=== PATIENT | female | born 1980 | race Caucasian/White ===

== ENCOUNTER 2016-12-12 14:07 | Emergency (ER) | payer OTHER ==
--- NOTE | 2016-12-12 15:57 | ED ---
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 Left lower quadrant abdominal pain. History of ovarian cyst. No surgery history. No fevers. No nausea vomiting or diarrhea. No medication taken at home for pain this time. Patient states she has history of ovarian cysts, she also is history of colonoscopy in no history of diverticulosis. - Related Data Home Medications Medication Instructions Recorded Confirmed Cetirizine HCl [Zyrtec] 10 mg PO DAILY 04/23/16 04/23/16 Cholecalciferol [Vitamin D3] 5,000 unit PO DAILY 04/23/16 04/23/16 Flaxseed Oil [Louise-3 Flaxseed Oil] 1,000 mg PO DAILY 04/23/16 04/23/16 Previous Rx's Medication Instructions Recorded Ketorolac [Toradol] 10 mg PO Q6HR #20 tab 04/23/16 Allergies Allergy/AdvReac Type Severity Reaction Status Date / Time Milk Containing Products Allergy Cough Verified 12/12/16 14:47 [Dairy] Review of Systems ROS Statement: Those systems with pertinent positive or pertinent negative responses have been documented in the HPI. ROS Other: All systems not noted in ROS Statement are negative. Past Medical History Additional Past Medical History / Comment(s): Polycystic ovarian disease, ovarian cysts History of Any Multi-Drug Resistant Organisms: None Reported Past Surgical History: Uterine Ablation Additional Past Surgical History / Comment(s): D &C, Past Psychological History: No Psychological Hx Reported Smoking Status: Never smoker Past Alcohol Use History: None Reported Past Drug Use History: None Reported General Exam Limitations: no limitations General appearance: alert, in no apparent distress Head exam: Present: atraumatic, normocephalic, normal inspection Eye exam: Present: normal appearance, PERRL, EOMI. Absent: scleral icterus, conjunctival injection, periorbital swelling ENT exam: Present: normal exam, mucous membranes moist Neck exam: Present: normal inspection. Absent: tenderness, meningismus, lymphadenopathy Respiratory exam: Present: normal lung sounds bilaterally. Absent: respiratory distress, wheezes, rales, rhonchi, stridor Cardiovascular Exam: Present: regular rate, normal rhythm, normal heart sounds. Absent: systolic murmur, diastolic murmur, rubs, gallop, clicks GI/Abdominal exam: Present: soft, tenderness (Left lower quadrant), normal bowel sounds. Absent: distended, guarding, rebound, rigid Extremities exam: Present: normal inspection, full ROM, normal capillary refill. Absent: tenderness, pedal edema, joint swelling, calf tenderness Back exam: Present: normal inspection Neurological exam: Present: alert, oriented X3, CN II-XII intact Psychiatric exam: Present: normal affect, normal mood Skin exam: Present: warm, dry, intact, normal color. Absent: rash Course Vital Signs 12/12/16 14:45 Temperature 97.7 F Pulse Rate 68 Respiratory 20 Rate Blood Pressure 122/68 O2 Sat by Pulse 98 Oximetry - Reevaluation(s) Reevaluation #1: 12/12/16 16:38 Patient has good pain control at this time Medical Decision Making - Medical Decision Making 36 female here for evaluation of abdominal pain, possible ovarian urine is negative for infectious patient can be discharged home with pain control - Lab Data Lab Results 12/12/16 12/12/16 Range/Units 16:01 16:01 Urine Color Yellow Urine Appearance Cloudy H (Clear) Urine pH 8.0 (5.0-8.0) Ur Specific [place] 1.019 (1.001-1.035) Urine Protein Trace H (Negative) Urine Glucose (UA) Negative (Negative) Urine Ketones Negative (Negative) Urine Blood Negative (Negative) Urine Nitrite Negative (Negative) Urine Bilirubin Negative (Negative) Urine Urobilinogen <2.0 (<2.0) mg/dL Ur Leukocyte Esterase Negative (Negative) Urine WBC <1 (0-5) /hpf Ur Squamous Epith Cells 1 (0-4) /hpf Amorphous Sediment Rare H (None) /hpf Urine Bacteria Many H (None) /hpf Urine Mucus Occasional H (None) /hpf Urine HCG, Qual Not Detected (Not Detectd) - Radiology Data Radiology results: report reviewed (Ultrasound pelvis is positive for ovarian cyst), image reviewed Disposition Clinical Impression: Abdominal pain, Ovarian cyst Disposition: HOME SELF-CARE Condition: Good Instructions: Abdominal Pain (ED), Ovarian Cyst (ED) Referrals: Tez Hewitt MD [Primary Care Provider] - 1-2 days
[2016-12-12] MEDS ORDERED: ONDANSETRON ODT 4 MG TAB PO STA (16:11)
[2016-12-12] MEDS ORDERED: HYDROmorphone 2 MG/ML 1 ML SYRINGE IM STA (16:11)
[2016-12-12 16:28] LABS: Amorphous Sediment,Urine Rare /hpf; Appearance,Urine Cloudy (Clear); Bacteria,Urine Many /hpf; Bilirubin,Urine Negative (Negative); Glucose,Urine (UA) Negative (Negative); Ketones,Urine Negative (Negative); Leukocyte Esterase,Urine Negative (Negative); Mucus,Urine Occasional /hpf; Nitrite,Urine Negative (Negative); Particle Count 15133; Protein,Urine Trace (Negative); Specific Gravity,Urine 1.019 (1.001-1.035); Squamous Epithelial Cell,Urine 1 /hpf (0-4); UA Billing (MACRO vs. MICRO) MICRO; Urobilinogen,Urine <2.0 mg/dL (<2.0); WBC,Urine <1 /hpf (0-5)
--- NOTE | 2016-12-12 16:53 | US ---
EXAMINATION TYPE: US transvaginal DATE OF EXAM: 12/12/2016 COMPARISON: 04/23/2016 CLINICAL HISTORY: Pain. LLQ pain x 4 days TECHNIQUE: Transvaginal (TV) Date of LMP: 7-8 years ago, pt states previous ablation EXAM MEASUREMENTS: Uterus: 7.5 x 4.4 x 4.4 cm cm Endometrial Stripe: 0.4 cm Right Ovary: 2.6 x 1.4 x 3.0 cm Left Ovary: 2.9 x 1.5 x 2.3 cm 1. Uterus: Anteverted Heterogeneous, echogenic area within fundus, unchanged from previous exams= 1.7 x 1.0 x 1.8 cm 2. Endometrium: wnl 3. Right Ovary: wnl 4. Left Ovary: wnl Spectral, color and waveform doppler imaging shows good arterial and venous flow within the ovaries ; there is no evidence for ovarian torsion. 5. Bilateral Adnexa: wnl 6. Posterior cul-de-sac: wnl Bilateral follicles IMPRESSION: No evidence of ovarian torsion. 17 x 9 mm echogenic area in the uterine fundus consistent with an endometrial polyp or submucosal fibroid appears stable compared to last exam.
[2016-12-12 17:51] VITALS: BP 119/87; PULSE 75; RESP 18; TEMP 97.8
== END 2016-12-12 17:50 | disposition home or self-care (01) ==
LOC: EC 14:07
DX: N83.209 Unspecified ovarian cyst, unspecified side (principal); Z79.899 Other long term (current) drug therapy; Z91.011 Allergy to milk products; Z98.890 Other specified postprocedural states
CPT/HCPCS: 81001; 81025; 87086; 93975; 76830; 99284; 96372; J1170

== ENCOUNTER → 2017-03-17 | Outpatient (CLI) | payer OTHER ==
--- NOTE | 2017-03-17 15:55 | MR ---
EXAMINATION TYPE: MR foot RT wo con DATE OF EXAM: 03/17/2017 COMPARISON: NONE HISTORY: pain in rt foot per order. (M 79.671). Pain swelling with limited movement for 10 months bet ween toes over plantar surface per patient. Standard multiplanar, multisequence MRI departmental protocol Multiplanar, multisequence images of the right foot were acquired. FINDINGS: There is some spurring and joint space loss at mid foot articulations. There is some flexio n in the second through fifth toes identified. There is abnormal subcutaneous edema surrounding distal third metatarsal beginning on coronal image 2 5 at distal diaphyseal level with involvement of the third metatarsal head present. There is some inc reased T2 osseous signal in the third metatarsal head noted seen best on sagittal image 17. There is asymmetric prominent joint effusion along dorsal surface at this level on coronal image 19 some mild edema at base of third proximal phalanx is also felt present. Adjacent flexor and extensor tendons ar e intact and not suspiciously enlarged or have abnormal signal. Plantar fascia is maintained. Normal sinus tarsi fat is seen. There is small superior moderate size i nferior calcaneal spur is incidentally noted. IMPRESSION: Consider inflammatory change centered at third metacarpophalangeal joint with inflammatory spread to involve the bone and adjacent soft tissue of the third metatarsal head and proximal metaphysis of the third proximal phalanx.
== END | disposition home or self-care (01) ==
LOC: RADMRIMAIN 12:47
PROVIDERS: ATTEND Family Medicine
DX: M25.871 Other specified joint disorders, right ankle and foot (principal); M79.671 Pain in right foot

== ENCOUNTER → 2017-04-18 | Outpatient (CLI) | payer OTHER ==
[2017-04-18 17:12] LABS: Uric Acid 3.6 mg/dL (3.7-7.4)
[2017-04-18 17:14] LABS: Rheumatoid Factor, Qnt <9 IU/mL (<12)
[2017-04-19 01:12] LABS: ANA w/Reflex to Titer NEGATIVE (NEGATIVE); Cyclic Citrull Pep IgG Unit <0.5 U/mL; Cyclic Citrullinated Pep IgG NEGATIVE (NEGATIVE)
[2017-04-19 13:37] LABS: Lyme IgG/IgM 0.2 Index; Lyme IgG/IgM Interp NEGATIVE (NEGATIVE)
== END | disposition home or self-care (01) ==
LOC: LABWHC1 15:59
PROVIDERS: ATTEND Orthopaedic Surgery Foot and Ankle Surgery
DX: M20.41 Other hammer toe(s) (acquired), right foot (principal); M65.871 Other synovitis and tenosynovitis, right ankle and foot; M79.671 Pain in right foot
CPT/HCPCS: 36415; 84550; 85652; 86038; 86200; 86431; 86618

== ENCOUNTER → 2017-10-11 | Outpatient (CLI) | payer OTHER ==
[2017-10-12 12:48] LABS: HLA B27 NEGATIVE
== END | disposition home or self-care (01) ==
LOC: LABWHC1 14:53
PROVIDERS: ATTEND Orthopaedic Surgery Foot and Ankle Surgery
DX: M20.41 Other hammer toe(s) (acquired), right foot (principal); M65.871 Other synovitis and tenosynovitis, right ankle and foot; M76.821 Posterior tibial tendinitis, right leg
CPT/HCPCS: 36415; 85652; 86812

== ENCOUNTER → 2018-02-02 | Outpatient (CLI) | payer OTHER ==
--- NOTE | 2018-02-03 07:52 | MM ---
Reason for exam: screening (asymptomatic). History: Family history of breast cancer in cousin at age 40 and breast cancer in grandmother at age 50. Physical Findings: Nurse did not find any significant physical abnormalities on exam. MG 3D Screening Mammo W/Cad Bilateral CC and MLO view(s) were taken. The breast tissue is heterogeneously dense. This may lower the sensitivity of mammography. No suspicious calcifications are seen. Nodular density left 9 o'clock and right upper outer quadrant anterior third position. These results were verbally communicated with the patient and result sheet given to the patient on 02/02/18. ASSESSMENT: Incomplete: need additional imaging evaluation, BI-RAD 0 RECOMMENDATION: Ultrasound of both breasts.
--- NOTE | 2018-02-03 07:55 | USB ---
Reason for exam: additional evaluation requested from abnormal screening. History: Family history of breast cancer in cousin at age 40 and breast cancer in grandmother at age 50. US Breast Workup Limited SALTY Right limited breast ultrasound including focal area of concern, retroareolar and axilla demonstrates a 0.6 x 0.4 x 0.6cm mixed lesion at 9 o'clock for which a biopsy is recommended and a 0.3 x 0.2 x 0.3cm lesion too small to characterize at 10 o'clock. Left limited breast ultrasound including focal area of concern, retroareolar and axilla demonstrates a 1.9 x 2.1 x 1.7cm solid lesion at 8 o'clock for which a biopsy is recommended and a node at the axilla. These results were verbally communicated with the patient and result sheet given to the patient on 02/02/18. ASSESSMENT: Suspicious, BI-RAD 4 RECOMMENDATION: Ultrasound core biopsy of both breasts. Called Dr. Hewitt with mammographic findings, office will call the patient and let her know how to proceed. PRELIMINARY REPORT CALLED AND FAXED TO DR. HEWITT ON 02/02/18.
== END | disposition home or self-care (01) ==
LOC: RADMAMWWP 13:59
PROVIDERS: ATTEND Family Medicine
DX: Z12.31 Encounter for screening mammogram for malignant neoplasm of breast (principal); R92.8 Other abnormal and inconclusive findings on diagnostic imaging of breast
CPT/HCPCS: 77063; 77067

== ENCOUNTER → 2018-02-16 | Day surgery (SDC) | payer OTHER ==
[2018-02-16 13:22] VITALS: RESP 16; TEMP 97.8; BMI 27.3
--- NOTE | 2018-02-16 14:53 | USB ---
EXAMINATION TYPE: US biopsy breast VAD RT, US biopsy breast VAD LT, MG diagnostic mammo BI wo CAD DATE OF EXAM: 02/16/2018 CLINICAL HISTORY: N64.9 Lesion of the breast bilateral. Prior abnormal ultrasound and mammogram. TECHNIQUE: Ultrasound guided core biopsy of bilateral breast with clip placement and follow-up two-view mammogram. COMPARISON: Bilateral breast ultrasound and mammogram February 02, 2018. FINDINGS: The procedure of ultrasound guided core biopsy was explained to the patient. Benefits, alternatives, and risks were discussed. An informed consent was then obtained. The patient was placed in supine positioning for imaging and for the procedure. Preprocedure imaging redemonstrates small 6 mm oval well- circumscribed slightly hypoechoic lesion 9:00 position zone a in the right breast and a larger deeper 1.7 cm lobulated hypoechoic lesion 8:00 position zone C in the left breast. The overlying skin was prepped and draped in usual sterile fashion. Lidocaine buffered with bicarbonate was used as anesthetic into the skin and subcutaneous tissue up to area of concern in the breast. Lidocaine with epinephrine is used as anesthetic into the deeper tissue. Under ultrasound guidance, a 12-gauge vacuum assisted biopsy gun device was used to obtain 2 core samples on the left and 3 core samples on the right. Following this, a biopsy clip was placed in both lesions. The patient tolerated the procedure well without any immediate complication. The patient was kept in the radiology department for short stay after the procedure and then discharged home in stable condition. Postprocedure mammogram shows successful placement of clips bilaterally at level of bilateral visualized nodules or masses, smaller right-sided lesion is less well-seen after the procedure. IMPRESSION: Successful, uncomplicated ultrasound guided core biopsies of bilateral of areas of concern in the bilateral breasts, full pathology results to follow. Low to intermediate index of suspicion noted at time of procedure. Favor benign fibroadenomas bilaterally. Pathology Results: Benign A. BREAST, LEFT, ULTRASOUND GUIDED CORE BIOPSY: Fibroadenoma. B. BREAST, RIGHT, ULTRASOUND GUIDED CORE BIOPSY: Fibroadenoma. Background fibrocystic changes including small cysts and apocrine metaplasia. Recommendation Follow up ultrasound of both breasts in 6 months. MTDD
[2018-02-16 16:19] VITALS: BP 118/78; PULSE 73
== END ==
LOC: RADUSWWP 12:43
PROVIDERS: ATTEND Family Medicine
DX: D24.2 Benign neoplasm of left breast (principal); D24.1 Benign neoplasm of right breast; N60.81 Other benign mammary dysplasias of right breast; N60.11 Diffuse cystic mastopathy of right breast
CPT/HCPCS: 88305; 77066; 19083; 19084; A4648; J2001

== ENCOUNTER → 2018-11-21 | Outpatient (CLI) | payer OTHER ==
--- NOTE | 2018-11-22 09:07 | USB ---
Reason for exam: follow-up at short interval from prior study. History: Family history of breast cancer in cousin at age 40 and breast cancer in grandmother at age 50. Benign US biopsy breast VAD LT of the left breast, February 16, 2018. Benign US biopsy breast add'l VAD RT of the right breast, February 16, 2018. Physical Findings: Nurse did not find any significant physical abnormalities on exam. US Breast BILAT Right complete breast ultrasound includes all four quadrants, the retroareolar region and axilla. Finding demonstrates a 0.8 x 0.3 x 0.4cm oval, mixed lesion, likely cystic cluster at 7 o'clock, a 0.3 x 0.3 x 0.5cm oval, probably cystic lesion at 8 o'clock however no clear increase through transmission, 6 month follow up recommended and a 0.6 x 0.3 x 0.5cm oval, hypoechoic lesion at 9 o'clock, biopsy proven fibroadenoma. Left complete breast ultrasound includes all four quadrants, the retroareolar region and axilla. Finding demonstrates a 1.8 x 1.5 x 1.8cm hypoechoic, vascular lesion at 9 o'clock, biopsy proven fibroadenoma. These results were verbally communicated with the patient and result sheet given to the patient on 11/21/18. ASSESSMENT: Probably benign, BI-RAD 3 RECOMMENDATION: Ultrasound of the right breast in 6 months. (attention 8 o'clock)
== END | disposition home or self-care (01) ==
LOC: RADUSWWP 13:58
PROVIDERS: ATTEND Obstetrics & Gynecology
DX: R92.8 Other abnormal and inconclusive findings on diagnostic imaging of breast (principal)

== ENCOUNTER → 2019-06-27 | Outpatient (CLI) | payer OTHER ==
--- NOTE | 2019-06-27 11:38 | USB ---
Reason for exam: follow-up at short interval from prior study. History: Family history of breast cancer in cousin at age 40 and breast cancer in grandmother at age 50. Benign US biopsy breast VAD LT of the left breast, February 16, 2018. Benign US biopsy breast add'l VAD RT of the right breast, February 16, 2018. Physical Findings: Nurse did not find any significant physical abnormalities on exam. US Breast Limited RT Right limited breast ultrasound including focal area of concern, retroareolar and axilla demonstrates a 0.7 x 0.4 x 0.5cm oval, cystic lesion at 7 o'clock with septation, stable, a 0.7 x 0.4 x 0.6cm round, cystic lesion at 8 o'clock and a 0.5 x 0.3 x 0.6cm oval, isoechoic lesion at 9 o'clock, stable in size and appearance. No significant new cystic or solid lesion greater than 0.50cm. These results were verbally communicated with the patient and result sheet given to the patient on 06/27/19. ASSESSMENT: Benign, BI-RAD 2 RECOMMENDATION: Routine screening mammogram of both breasts at age 40.
== END | disposition home or self-care (01) ==
LOC: RADUSWWP 06:44
PROVIDERS: ATTEND Obstetrics & Gynecology
DX: R92.8 Other abnormal and inconclusive findings on diagnostic imaging of breast (principal)

== ENCOUNTER → 2020-02-19 | Outpatient (CLI) | payer OTHER ==
--- NOTE | 2020-02-20 08:46 | US ---
EXAMINATION TYPE: US pelvic complete plus Dopplers DATE OF EXAM: 02/19/2020 COMPARISON: None CLINICAL HISTORY: 4-year-old female R10.2 pelvic pain; especially left pelvic pain x 1 month, endomet rial ablation 9 years ago; TECHNIQUE: Transabdominal scanning of the pelvis. Transvaginal sonographic images were medically nec essary to better assess the following anatomy: ovaries as bladder was not full. Color Doppler and spe ctral waveform analysis of the ovarian arteries and veins. Date of LMP: 9 years ago FINDINGS: EXAM MEASUREMENTS: Uterus: 6.3 x 5.4 x 4.8 cm Endometrial Stripe: small amount of fluid seen in EREN Right Ovary: 3.6 x 2.3x 1.8 cm Left Ovary: 2.6 x 2.0 x 1.2 cm 1. Uterus: Retroverted: hypoechoic rounded area at the mid uterine fundus appears intramural measuri ng 1.0 x 1.0 x 0.8cm; couple of hyperechoic thick walled cysts seen in mid upper myometrium measuring 6 and 5 mm. 2. Endometrium: Small amount of fluid seen in lower midline area of endometrium with history of endo metrial ablation 3. Right Ovary: multifollicular with largest having appearance of involuting cyst = 1.8 x 1.0 x 1.1 cm with peripheral ring of color flow. 4. Left Ovary: multifollicular with simple cyst = 1.1 x 1.0 x 0.9cm. Hyperechoic focus noted adjacen t to cyst = 0.1 x 0.1 x 0.1cm. Spectral, color and waveform Doppler imaging shows good arterial and venous flow within the ovaries ; there is no evidence for ovarian torsion. 5. Bilateral Adnexa: wnl 6. Posterior cul-de-sac: small amount of free fluid seen here = 0.9 x 0.5 x 1.0cm IMPRESSION: 1. Endometrial stripe difficult to delineate compatible with history of prior endometrial ablation. H owever, there is a small amount of fluid seen along the lower uterine segment. There are also a coupl e small cystic areas along the mid to upper endometrium measuring up to 6 mm. Areas of focal hematome tra are not excluded. 2. A suspected hemorrhagic corpus luteum or hemorrhagic cyst measuring 1.8 cm the right ovary. 3. No sonographic evidence for ovarian torsion. 4. Small amount of pelvic free fluid likely physiologic.
== END | disposition home or self-care (01) ==
LOC: RADUSWWP 15:22
PROVIDERS: ATTEND Family Medicine
DX: N85.8 Other specified noninflammatory disorders of uterus (principal)
CPT/HCPCS: 76830

== ENCOUNTER → 2020-03-24 | Outpatient (CLI) | payer OTHER ==
--- NOTE | 2020-03-26 10:54 | MM ---
Reason for exam: screening (asymptomatic). Last mammogram was performed 2 years and 1 month ago. History: Family history of breast cancer in cousin at age 40 and breast cancer in grandmother at age 50. Benign US biopsy breast VAD LT of the left breast, February 16, 2018. Benign US biopsy breast add'l VAD RT of the right breast, February 16, 2018. Physical Findings: A clinical breast exam by your physician is recommended on an annual basis and results should be correlated with mammographic findings. MG 3D Screening Mammo W/Cad Bilateral CC, MLO, and XCCL view(s) were taken. Prior study comparison: February 16, 2018, bilateral MG diagnostic oli BI wo CAD. February 02, 2018, bilateral MG 3d screening mammo w/cad. The breast tissue is heterogeneously dense. This may lower the sensitivity of mammography. Previous mammotome biopsy in the right and left breast. There is chronic nodularity bilaterally. New central right breast nodularity. New left upper outer quadrant nodularity. ASSESSMENT: Incomplete: need additional imaging evaluation, BI-RAD 0 RECOMMENDATION: Special view mammogram and ultrasound of both breasts. (3D) [facility] will attempt to contact patient to return for supplemental views and ultrasound.
== END | disposition home or self-care (01) ==
LOC: RADMAMWWP 09:04
PROVIDERS: ATTEND Obstetrics & Gynecology
DX: Z12.31 Encounter for screening mammogram for malignant neoplasm of breast (principal)
CPT/HCPCS: 77063; 77067

== ENCOUNTER → 2020-04-17 | Outpatient (CLI) | payer OTHER ==
--- NOTE | 2020-04-21 10:05 | MM ---
Reason for exam: additional evaluation requested from abnormal screening. Last mammogram was performed 1 month ago. History: Family history of breast cancer in cousin at age 40 and breast cancer in grandmother at age 50. Benign US biopsy breast VAD LT of the left breast, February 16, 2018. Benign US biopsy breast add'l VAD RT of the right breast, February 16, 2018. Physical Findings: Nurse did not find any significant physical abnormalities on exam. MG 3D Work Up W/Cad SALTY Bilateral LM view(s) were taken. Prior study comparison: March 24, 2020, bilateral MG 3d screening mammo w/cad. February 16, 2018, bilateral MG diagnostic oli BI wo CAD. The breast tissue is heterogeneously dense. This may lower the sensitivity of mammography. Focal asymmetry left 9 o'clock, right anterior 9 o'clock. No significant new findings when compared with previous films. These results were verbally communicated with the patient and result sheet given to the patient on 04/17/20. ASSESSMENT: Benign, BI-RAD 2 RECOMMENDATION: Ultrasound of the left breast in 6 months.
--- NOTE | 2020-04-21 10:08 | USB ---
Reason for exam: additional evaluation requested from abnormal screening. History: Family history of breast cancer in cousin at age 40 and breast cancer in grandmother at age 50. Benign US biopsy breast VAD LT of the left breast, February 16, 2018. Benign US biopsy breast add'l VAD RT of the right breast, February 16, 2018. US Breast Workup Limited SALTY Right limited breast ultrasound including focal area of concern, retroareolar and axilla demonstrates a 0.5 x 0.6 x 0.4cm oval, cystic lesion at 7 o'clock, a 0.3 x 0.4 x 0.3cm oval, cystic lesion at 7 o'clock, a 0.4 x 0.4 x 0.2cm oval, cystic lesion at 8 o'clock and a 0.4 x 0.6 x 0.3cm oval lesion at 9 o'clock, prior biopsy. Left limited breast ultrasound including focal area of concern, retroareolar and axilla demonstrates a 1.6 x 2.2 x 1.7cm oval, lobular, solid lesion at 9 o'clock, prior biopsy, a 1.3 x 1.2 x 0.7cm oval, hypoechoic lesion at 9 o'clock and a 1.4 x 1.5 x 1.3cm node at axilla, larger. These results were verbally communicated with the patient and result sheet given to the patient on 04/17/20. ASSESSMENT: Probably benign, BI-RAD 3 RECOMMENDATION: Ultrasound of the left breast in 6 months.
== END | disposition home or self-care (01) ==
LOC: RADMAMWWP 13:29
PROVIDERS: ATTEND Obstetrics & Gynecology
DX: R92.8 Other abnormal and inconclusive findings on diagnostic imaging of breast (principal)
CPT/HCPCS: 77062; 77066

== ENCOUNTER → 2020-10-06 | Outpatient (CLI) | payer BC ==
--- NOTE | 2020-10-06 10:36 | USB ---
Reason for exam: follow-up at short interval from prior study. History: Family history of breast cancer in cousin at age 40 and breast cancer in grandmother at age 50. Benign US biopsy breast VAD LT of the left breast, February 16, 2018. Benign US biopsy breast add'l VAD RT of the right breast, February 16, 2018. Physical Findings: Nurse did not find any significant physical abnormalities on exam. US Breast Limited LT Technologist: Krystyna Dueñas Left limited breast ultrasound including focal area of concern, retroareolar and axilla demonstrates a 1.7 x 1.9 x 1.3cm hypoechoic lesion at 9 o'clock previously biopsied, a 0.5 x 0.8 x 0.2cm cystic cluster at 2 o'clock and a 1.2 x 0.7 x 0.4cm cystic lesion at 3 o'clock. One of these may correspond to the mammographic finding of 03/24/20. Scanned 8-10 o'clock and 1-4 o'clock. These results were verbally communicated with the patient and result sheet given to the patient on 10/06/20. ASSESSMENT: Probably benign, BI-RAD 3 RECOMMENDATION: Follow-up diagnostic mammogram of both breasts in 6 months.
== END | disposition home or self-care (01) ==
LOC: RADUSWWP 09:34
PROVIDERS: ATTEND Obstetrics & Gynecology
DX: R92.8 Other abnormal and inconclusive findings on diagnostic imaging of breast (principal)

== ENCOUNTER → 2021-05-07 | Outpatient (CLI) | payer BC ==
--- NOTE | 2021-05-08 09:46 | MM ---
Reason for exam: additional evaluation requested from prior study. Last mammogram was performed 1 year and 1 month ago. History: Family history of breast cancer in cousin at age 40 and breast cancer in grandmother at age 50. Benign US biopsy breast VAD LT of the left breast, February 16, 2018. Benign US biopsy breast add'l VAD RT of the right breast, February 16, 2018. Physical Findings: Nurse did not find any significant physical abnormalities on exam. MG 3D Diag Mammo W/Cad SALTY Bilateral CC and MLO view(s) were taken. Prior study comparison: April 17, 2020, bilateral MG 3d work up w/cad SALTY. March 24, 2020, bilateral MG 3d screening mammo w/cad. There are scattered fibroglandular densities. No suspicious calcifications are seen. Previous mammotome biopsy in the right and left breast. Stable lobulated mass left 9 o'clock (previous biopsy). No significant new findings when compared with previous films. These results were verbally communicated with the patient and result sheet given to the patient on 05/07/21. ASSESSMENT: Benign, BI-RAD 2 RECOMMENDATION: Routine screening mammogram of both breasts in 1 year.
== END | disposition home or self-care (01) ==
LOC: RADMAMWWP 14:39
PROVIDERS: ATTEND Obstetrics & Gynecology
DX: R92.2 Inconclusive mammogram (principal); Z78.0 Asymptomatic menopausal state
CPT/HCPCS: 77062; 77066

== ENCOUNTER → 2021-07-07 | Outpatient (CLI) | payer BC ==
--- NOTE | 2021-07-08 03:55 | MR ---
EXAMINATION TYPE: MR foot RT wo con DATE OF EXAM: 07/07/2021 COMPARISON: 03/17/2017 HISTORY: Pain right foot, Posterior tibial tendon tear Multiplanar multiecho imaging of the right foot without contrast. There is a mild ankle joint effusion. There is minimal subtalar fluid. There is no evidence of a frac ture. There is increased signal in the proximal second metatarsal adjacent to the tarsometatarsal roxanne nt and consistent with edema. No fracture line seen. There is mild subcutaneous edema of the forefoot . Achilles tendon is intact. Plantar fascia is intact. The medial and lateral flexor tendons appear i ntact. The posterior tibial tendon shows no retraction. The collateral ligaments of the ankle appear intact. IMPRESSION: There is some edema in the proximal second metatarsal suggestive of a bone bruise. No definite fractu re seen. Mild subcutaneous edema. There is clearing of the fluid and edema around the third MP joint compared to the old exam.
== END | disposition home or self-care (01) ==
LOC: RADMRIMAIN 15:24
PROVIDERS: ATTEND Orthopaedic Surgery Foot and Ankle Surgery
DX: R60.0 Localized edema (principal)

== ENCOUNTER → 2022-05-24 | Outpatient (CLI) | payer BC ==
--- NOTE | 2022-05-25 09:04 | MM ---
Reason for Exam: Screening (asymptomatic). Last mammogram was performed 1 year(s) and 1 month(s) ago. Patient History: Menarche at age 11. First Full-Term at age 21. 02/16/2018, Benign Core Biopsy on the right side. 02/16/2018, Benign Core Biopsy on the left side. Maternal grandmother had breast cancer, age 50. Maternal cousin had breast cancer, age 40. Risk Values: Arely 5 year model risk: 1.7%. NCI Lifetime model risk: 15.3%. Prior Study Comparison: 03/24/2020 Bilateral Screening Mammogram, [facility]. 04/17/2020 Bilateral Diagnostic Mammogram, [facility]. 05/07/2021 Bilateral Diagnostic Mammogram, [facility]. Tissue Density: There are scattered fibroglandular densities. Findings: Analyzed By CAD. There is no suspicious group of microcalcifications or new suspicious mass in either breast. Previous mammotome biopsy in the right and left breast. Stable lobulated mass left breast at 9:00. Chronic nodularity in the right breast. No significant change from prior exams. Overall Assessment: Benign, BI-RAD 2 Management: Screening Mammogram of both breasts in 1 year. A clinical breast exam by your physician is recommended on an annual basis and results should be correlated with mammographic findings. Electronically signed and approved by: Nawaf Nguyen D.O.
== END | disposition home or self-care (01) ==
LOC: RADMAMWWP 13:43
PROVIDERS: ATTEND Obstetrics & Gynecology
DX: Z12.31 Encounter for screening mammogram for malignant neoplasm of breast (principal); Z80.3 Family history of malignant neoplasm of breast
CPT/HCPCS: 77063; 77067

== ENCOUNTER 2023-05-13 11:25 | Day surgery (SDC) | payer BC ==
[2023-05-12 12:16] VITALS: BMI 28.8
[~2023-05-13 11:25] MED LIST: LACTATED RINGERS 1,000 ML IV SCH
[2023-05-13 12:48] LABS: Glucose,Whole Blood 83 mg/dL (70-110)
[2023-05-13 13:00] VITALS: TEMP 96
[2023-05-13] MEDS ORDERED: PROPOFOL 10 MG/ML 20 ML VIAL IV ONE (13:00)
[2023-05-13] MEDS ORDERED: LIDOCAINE 1% INJ 10MG/ML (20 ML MDV) ONE (13:00)
--- NOTE | 2023-05-13 13:12 | P.PCN ---
Date of Procedure: 05/13/23 Procedure(s) Performed: BRIEF HISTORY: Patient is a 43-year-old pleasant female scheduled for an elective colonoscopy as a part of screening for colon cancer and family history of colon cancer. Her brother was diagnosed with colon cancer at age 41. PROCEDURE PERFORMED: Colonoscopy with biopsy. PREOPERATIVE DIAGNOSIS: Screening for colon cancer and family history of colon cancer. IV sedation per Anesthesia. PROCEDURE: After informed consent was obtained, the patient, was brought into the endoscopy unit. IV sedation was administered by Anesthesia under continuous monitoring. Digital rectal examination was normal. Initially the Olympus CF-160 flexible video colonoscope was then inserted in the rectum, gradually advanced into the cecum without any difficulty. Careful examination was performed as the scope was gradually being withdrawn. Ileocecal valve and the appendiceal orifice were visualized and appeared normal. Prep was excellent. Mucosa of the cecum, ascending colon, transverse colon, descending colon, we normal. There was mild mucosal erythema without friability and superficial erosions involving the distal sigmoid colon extending from 25-30 cm from the anal verge and biopsies were done from this area. Rest of sigmoid colon, and rectum appeared normal. Retroflexion was performed in the rectum and no lesions were seen. The patient tolerated the procedure well. IMPRESSION: Mild sigmoid colitis with mucosal erythema and superficial erosions, friability extending from 25-30 cm from the anal verge suspicious for mild ischemic colitis status post multiple biopsies No evidence of colorectal neoplasia RECOMMENDATIONS: Findings of this examination were discussed with the patient as well as a family. All of with the biopsy results. She was advised to have a repeat screening colonoscopy in 3 years..
[2023-05-13 14:08] VITALS: BP 134/76; PULSE 67; RESP 18
== END 2023-05-13 13:52 | disposition home or self-care (01) ==
LOC: ORWHC2ENDO 11:25
PROVIDERS: ATTEND Internal Medicine Gastroenterology
DX: Z12.11 Encounter for screening for malignant neoplasm of colon (principal); K52.89 Other specified noninfective gastroenteritis and colitis; E28.2 Polycystic ovarian syndrome; Z79.899 Other long term (current) drug therapy; Z98.890 Other specified postprocedural states; Z80.0 Family history of malignant neoplasm of digestive organs; Z91.012 Allergy to eggs
CPT/HCPCS: 81025; 45380; J2001; J2704; 88305

== ENCOUNTER → 2023-05-30 | Outpatient (CLI) | payer BC ==
--- NOTE | 2023-05-31 19:09 | MM ---
Reason for Exam: Screening (asymptomatic). Last screening mammogram was performed 12 month(s) ago. Patient History: Menarche at age 11. First Full-Term at age 21. 02/16/2018, Benign Core Biopsy on the right side. 02/16/2018, Benign Core Biopsy on the left side. Maternal grandmother had breast cancer, age 50. Maternal cousin had breast cancer, age 40. Risk Values: Arely 5 year model risk: 1.9%. NCI Lifetime model risk: 15.1%. Prior Study Comparison: 04/17/2020 Bilateral Diagnostic Mammogram, [facility]. 05/07/2021 Bilateral Diagnostic Mammogram, [facility]. 05/24/2022 Bilateral MG 3D screening mammo w/cad, [facility]. Tissue Density: There are scattered fibroglandular densities. Findings: Analyzed By CAD. Medially located mass in the left breast with microclip related to prior biopsy. Findings are unchanged. Additional microclip lateral right breast remains unchanged. There is no suspicious group of microcalcifications or new suspicious mass in either breast. Overall Assessment: Benign, BI-RAD 2 Management: Screening Mammogram of both breasts in 1 year. . Patient should continue monthly self-breast exams. A clinical breast exam by your physician is recommended on an annual basis. This exam should not preclude additional follow-up of suspicious palpable abnormalities. Note on Arely scores and lifetime risk: 1. A Arely score greater than 3% is considered moderate risk. If this is the case, consider specialist referral to assess eligibility for a risk reducing agent. 2. If overall lifetime risk for the development of breast cancer is 20% or higher, the patient may qualify for future screening with alternating mammogram and breast MRI. Electronically signed and approved by: Bisi Johnston M.D. Radiologist
== END | disposition home or self-care (01) ==
LOC: RADMAMWWP 12:11
PROVIDERS: ATTEND Obstetrics & Gynecology
DX: Z12.31 Encounter for screening mammogram for malignant neoplasm of breast (principal); Z80.3 Family history of malignant neoplasm of breast
CPT/HCPCS: 77063; 77067

== ENCOUNTER → 2024-03-30 | Outpatient (CLI) | payer BC ==
--- NOTE | 2024-03-30 21:58 | MR ---
EXAMINATION TYPE: MR knee LT wo con DATE OF EXAM: 03/30/2024 COMPARISON: Outside left knee x-rays March 21, 2024 HISTORY: left knee pain TECHNIQUE: Multiplanar, multisequence images of the knee is performed without IV contrast. FINDINGS: MEDIAL MENISCUS: Medial extrusion medial meniscus on coronal images. Irregular horizontal and vertica l oriented signal in the posterior horn extends to articular surface. Posterior horn is truncated LATERAL MENISCUS: Anterior and posterior horns are intact without tear. CRUCIATE LIGAMENTS: The anterior and posterior cruciate ligaments are intact and unremarkable. COLLATERAL LIGAMENTS: The medial collateral ligament and lateral collateral ligament complex are inta ct lateral collateral ligament proper shows thickening and increased signal at proximal attachment. EXTENSOR MECHANISM: Visualized quadriceps and patellar tendons are intact. EFFUSION: Moderate size suprapatellar joint effusion extends laterally. POPLITEAL CYST: No popliteal/polk cyst. TRICOMPARTMENT SPACES: Fairly severe patellofemoral joint narrowing and spurring quite prominent for patient's age. Additional moderate narrowing and spurring medial and lateral tibiofemoral compartment s. CARTILAGE: Significant chondromalacia patella with full-thickness cartilaginous loss in the posterior patellar pole. Significant cartilaginous loss medial tibiofemoral compartment. BONE MARROW SIGNAL: Heterogeneous increased T2 signal in the posterior patellar pole in the anterior aspect of the distal lateral femoral condyle. Additional area of heterogeneous increased T2 signal in volving posterior aspect of the distal lateral femoral condyle. OTHER: No additional significant abnormality is appreciated. IMPRESSION: 1. Tricompartment degenerative changes quite prominent for patient's age with severe patellofemoral c ompartment findings noted as detailed above. 2. Moderate sized joint effusion extends laterally. 3. Full-thickness tear posterior horn medial meniscus. [facility], , 03/30/2024 9:55 PM
== END | disposition home or self-care (01) ==
LOC: RADMRIMAIN 19:20
PROVIDERS: ATTEND Orthopaedic Surgery
DX: M25.562 Pain in left knee

== ENCOUNTER → 2024-05-08 | Outpatient (CLI) | payer BC ==
[2024-05-08 18:48] LABS: Basophils # (A) 0.03 X 10*3/uL (0.00-0.10); Basophils % (A) 0.4 %; Eosinophils # (A) 0.16 X 10*3/uL (0.04-0.35); Eosinophils % (A) 2.2 %; HCT 40.5 % (37.2-46.3); HGB 13.5 g/dL (12.0-15.0); Lymphocytes # (A) 2.65 X 10*3/uL (0.90-5.00); Lymphocytes % (A) 37.2 %; MCH 31.6 pg (27.0-32.0); MCHC 33.3 g/dL (32.0-37.0); MCV 94.8 FL (80.0-97.0); Mean Platelet Volume 10.2 FL (9.5-12.2); Monocytes # (A) 0.51 X 10*3/uL (0.20-1.00); Monocytes % (A) 7.2 %; NRBC Per 100 WBC 0 X 10*3/uL (0.00-0.01); Neutrophils # (A) 3.77 X 10*3/uL (1.80-7.70); Neutrophils % (A) 52.9 %; Platelet Count 302 X 10*3/uL (140-440); RBC 4.27 X 10*6/uL (4.10-5.20); RDW 12.2 % (11.5-14.5); WBC 7.13 X 10*3/uL (4.50-10.00)
[2024-05-08 20:07] LABS: Potassium 4.2 mmol/L (3.5-5.5)
== END | disposition home or self-care (01) ==
LOC: LABPAT 15:12
PROVIDERS: ATTEND Orthopaedic Surgery
CPT/HCPCS: 80051; 85025

== ENCOUNTER 2024-05-23 10:05 | Day surgery (SDC) | payer BC ==
--- NOTE | 2024-05-23 00:26 | HP ---
HISTORY AND PHYSICAL DATE OF SURGERY: 05/23/2024. HISTORY OF PRESENT ILLNESS: Rajni Spann is a 44-year-old patient, seen with progressive left knee pain. We discussed options regarding treatment. She elected to proceed with left knee arthroscopy. Consent was obtained. PAST MEDICAL HISTORY: Noncontributory. SURGICAL HISTORY: Endometrial ablation. DAILY MEDICATIONS: 1. Naprosyn. 2. Vitamins. ALLERGIES: None. SOCIAL HISTORY: She denies tobacco use. PHYSICAL EVALUATION OF THE LEFT KNEE: Range of motion is 0 to 130 degrees. Moderate effusion. Tenderness along the medial and lateral joint lines. Positive medial Carol's. Positive lateral Carol's. Ligaments stable. Hip rotation without pain. Distal neurovascular exam intact. IMAGING DATA: Left knee radiographs revealed osteoarthritic changes. MRI left knee revealed complex medial meniscal tear and osteoarthritic changes. IMPRESSION: 1. Internal derangement of left knee with medial meniscal tear. 2. Left knee patellofemoral compartment osteoarthritis. PLAN: Left knee arthroscopy with partial medial meniscectomy and debridement. MMODL / IJN: [id number] /
[2024-05-23] MEDS: IV FLUID CONTINUATION 1,000 ML IV ONE (10:32)
[2024-05-23] MEDS: DEXAMETHASONE SOD PHOSPHATE 4 MG/ML 1 ML VIAL IV ONE (10:37)
[2024-05-23] MEDS: LACTATED RINGERS 1,000 ML IV SCH (10:37)
[2024-05-23] MEDS: ONDANSETRON 4 MG/2 ML VIAL IVP ONE (10:37)
[2024-05-23] MEDS: BUPIVACAINE (PF) 0.25% 30 ML VIAL MISCELLANE ONE ×2 (11:49→12:27)
[2024-05-23] MEDS ORDERED: LIDOCAINE 1% INJ 10MG/ML (20 ML MDV) ONE (11:53)
[2024-05-23] MEDS ORDERED: MIDAZOLAM 2 MG/2 ML VIAL ONE (11:53)
[2024-05-23] MEDS ORDERED: fentaNYL (PF) 50 MCG/ML 2 ML AMP ONE (11:53)
[2024-05-23] MEDS ORDERED: PROPOFOL 10 MG/ML 20 ML VIAL IV ONE (11:53)
--- NOTE | 2024-05-23 12:41 | P.OP ---
Date of Procedure: 05/23/24 Preoperative Diagnosis: Internal derangement left knee Postoperative Diagnosis: 1. Tear medial and lateral meniscus left knee 2. Grade IV chondromalacia medial femoral condyle left knee 3. Reactive synovitis medial, lateral and superior compartments left knee 4. 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 Arthroscopic partial medial and lateral meniscectomy left knee 2. Arthroscopic microfracture medial femoral condyle left knee 3. Arthroscopic partial synovectomy medial, lateral and suprapatellar compartments left knee Anesthesia: DEVINA, local Surgeon: Kyler Crockett Estimated Blood Loss (ml): 7 Pathology: none sent Condition: stable Disposition: PACU Indications for Procedure: 44-year-old patient seen with progressive left knee pain. After having treatment options discussed, she elected to proceed with arthroscopy. Operative Findings: See description of procedure Description of Procedure: Patient was taken to the operative suite. Patient underwent a general anesthetic by the department of anesthesia. Patient was given preoperative antibiotics. The left lower extremity was placed in a well-padded arthroscopic leg chery. The left leg was prepped and draped in the normal sterile orthopedic fashion. A lateral parapatellar and suprapatellar incision was made. Trochars were inserted. Arthroscopy was initiated. Suprapatellar pouch revealed diffuse thick reactive synovitis. The patellofemoral joint appeared to articulate congruently. There was grade IV chondromalacia of both the patella and the femoral sulcus with large areas of exposed bone on both sides. The scope was guided into the medial gutter. No loose bodies or plica were identified. The scope was then guided into the medial compartment. A medial parapatellar incision was made. Trocar inserted followed by probe. There was a complex tear involving the posterior horn medial meniscus. There were grade III/IV chondromalacia changes involving the medial femoral condyle with o steochondral flap tears. There was thick reactive synovitis anteriorly. I performed a partial medial meniscectomy getting down to stable meniscal tissue. I performed a chondroplasty of the medial femoral condyle getting down to stable osteochondral tissue. I performed a partial synovectomy decompressing the reactive synovitis. There was an area of grade IV chondromalacia involving the medial femoral condyle measuring about a centimeter. I reduced a microfracture awl and I performed a microfracture to the area of exposed bone penetrating the bone with resultant bleeding at the microfracture site. The residual meniscus was probed and was found to be stable. The residual osteochondral surface was stable. There was good decompression of the synovitis. Scope and probe were then guided into the intercondylar notch. Cruciates were identified, probed and found to be stable. The scope and probe were then guided into lateral compartment. There was a radial tear involving the mid body lateral meniscus. There were grade I chondromalacia changes lateral compartment with no tears. There was some thick reactive synovitis anteriorly. I performed a partial lateral meniscectomy getting down to stable meniscal tissue. I performed a partial synovectomy decompressing the reactive synovitis. The residual meniscus was stable. There was good decompression of the synovitis. The scope was in guided back into the suprapatellar compartment. I reduced a motorized shaver into the suprasellar compartment. I debrided some piecemeal fragments of meniscus that I encountered. I performed a partial synovectomy. The shaver was removed. There appeared to be good decompression of the synovitis. I took one more look around the entire knee, no residual debris. Instruments were now r emoved from the joint. The joint was infiltrated with .25% Marcaine. Steri- Strips were applied to the portal sites. Sterile dressings were applied. The patient was placed into a MARY hose. No tourniquet was utilized. The patient was awakened, transferred to a bed and taken to recovery stable satisfactory condition.
[2024-05-23 12:45] VITALS: TEMP 96.8
[2024-05-23] MEDS: HYDROmorphone 0.5 MG/0.5 ML SYRINGE IVP PRN (12:59)
[2024-05-23 14:28] VITALS: RESP 18
[2024-05-23 14:30] VITALS: BP 108/71; PULSE 91
== END 2024-05-23 14:50 | disposition home or self-care (01) ==
LOC: OR 10:05
PROVIDERS: ATTEND Orthopaedic Surgery
DX: S83.282A Other tear of lateral meniscus, current injury, left knee, initial encounter (principal); S83.232A Complex tear of medial meniscus, current injury, left knee, initial encounter; M94.262 Chondromalacia, left knee; M65.862 Other synovitis and tenosynovitis, left lower leg; M17.12 Unilateral primary osteoarthritis, left knee; E28.2 Polycystic ovarian syndrome; Z79.1 Long term (current) use of non-steroidal anti-inflammatories (NSAID); Z79.899 Other long term (current) drug therapy; Z91.012 Allergy to eggs; Z91.011 Allergy to milk products; Z91.018 Allergy to other foods
CPT/HCPCS: 81025; 29880; 29879; 29876; J2250; J1100; J0690; J2405; J2003; J3010; J2704; J1171; J0665

== ENCOUNTER → 2024-06-15 | Outpatient (CLI) | payer BC ==
--- NOTE | 2024-06-18 08:36 | MM ---
Reason for Exam: Screening (asymptomatic). Last mammogram was performed 1 year(s) and 1 month(s) ago. Patient History: Menarche at age 11. First Full-Term at age 21. 02/16/2018, Benign Core Biopsy on the right side. 02/16/2018, Benign Core Biopsy on the left side. Maternal grandmother had breast cancer, age 50. Maternal cousin had breast cancer, age 40. Risk Values: Arely 5 year model risk: 2.0%. NCI Lifetime model risk: 14.9%. Prior Study Comparison: 05/07/2021 Bilateral Diagnostic Mammogram, [facility]. 05/24/2022 Bilateral MG 3D screening mammo w/cad, [facility]. 05/30/2023 Bilateral MG 3D screening mammo w/cad, [facility]. Tissue Density: There are scattered areas of fibroglandular density. Findings: Analyzed By CAD. Bilateral breast biopsy clips. Right breast: There is no suspicious group of microcalcifications or new suspicious mass. Left breast: Stable left mass with biopsy clip. There is no suspicious group of microcalcifications or new suspicious mass. Overall Assessment: Benign, BI-RAD 2 Management: Screening Mammogram of both breasts in [address] [facility] will attempt to contact patient to return for supplemental views and ultrasound if indicated. Patient should continue monthly self-breast exams. A clinical breast exam by your physician is recommended on an annual basis. This exam should not preclude additional follow-up of suspicious palpable abnormalities. Note on Arely scores and lifetime risk: 1. A Arely score greater than 3% is considered moderate risk. If this is the case, consider specialist referral to assess eligibility for a risk reducing agent. 2. If overall lifetime risk for the development of breast cancer is 20% or higher, the patient may qualify for future screening with alternating mammogram and breast MRI. [facility], , 06/18/2024 8:33 AM. Electronically signed and approved by: Sarthak Weiner DO
== END | disposition home or self-care (01) ==
LOC: RADMAMWWP 15:13
PROVIDERS: ATTEND Obstetrics & Gynecology
DX: Z12.31 Encounter for screening mammogram for malignant neoplasm of breast (principal); Z80.3 Family history of malignant neoplasm of breast; R92.323 Mammographic fibroglandular density, bilateral breasts
CPT/HCPCS: 77063; 77067

== ENCOUNTER 2024-11-28 11:16 | Emergency (ER) | payer BC ==
[2024-11-28 11:23] VITALS: TEMP 97.7
[2024-11-28] MEDS: HYDROmorphone 0.5 MG/0.5 ML SYRINGE IVP STA ×3 (12:09→14:27)
[2024-11-28] MEDS: ONDANSETRON 4 MG/2 ML VIAL IVP STA (12:09)
[2024-11-28] MEDS: SODIUM CHLORIDE 0.9% 1,000 ML IV ONE ×2 (12:10→14:24)
[2024-11-28 12:28] LABS: Basophils # (A) 0.02 10*3/uL (0.00-0.10); Basophils % (A) 0.2 %; Eosinophils # (A) 0.15 10*3/uL (0.04-0.35); Eosinophils % (A) 1.6 %; HCT 41.6 % (37.2-46.3); HGB 14.4 g/dL (12.0-15.0); Lymphocytes # (A) 2.03 10*3/uL (0.90-5.00); Lymphocytes % (A) 21.8 %; MCH 32.1 pg (27.0-32.0); MCHC 34.6 g/dL (32.0-37.0); MCV 92.9 fL (80.0-97.0); Mean Platelet Volume 10.5 fL (9.5-12.2); Monocytes # (A) 0.57 10*3/uL (0.20-1.00); Monocytes % (A) 6.1 %; Neutrophils # (A) 6.52 10*3/uL (1.80-7.70); Neutrophils % (A) 70.1 %; Platelet Count 262 10*3/uL (140-440); RBC 4.48 10*6/uL (4.10-5.20); WBC 9.31 10*3/uL (4.50-10.00)
--- NOTE | 2024-11-28 12:30 | ED ---
Abdominal Pain HPI - General Chief Complaint: Abdominal Pain Stated Complaint: Abd Pain Time Seen by Provider: 11/28/24 11:52 Source: patient, RN notes reviewed Mode of arrival: wheelchair Limitations: no limitations - History of Present Illness Initial Comments: 44-year-old female presents emergency department chief complaint of abdominal pain. Patient states started on 9 AM this morning. Patient has left lower quadrant abdominal pain states it feels very similar to her history of colitis. She states she is followed regularly with Dr. Garcia has had multiple scopes. She has had a uterine ablation no other abdominal surgeries no melanotic stools no hematochezia she states she is nauseated no fevers or chills no chest pain no shortness of breath. - Related Data Home Medications Medication Instructions Recorded Confirmed Loratadine [Claritin] 10 mg PO DAILY 12/12/16 11/28/24 Cholecalciferol [Vitamin D3 (25 50 mcg PO DAILY 11/28/24 11/28/24 Mcg = 1000 Iu)] Vitamin B Complex 1 cap PO DAILY 11/28/24 11/28/24 Previous Rx's Medication Instructions Recorded Amoxic-Pot Clav 875-125Mg 1 tab PO Q12HR #20 tab 11/28/24 [Augmentin 875-125] Fluconazole [Diflucan] 150 mg PO ONCE #4 tab 11/28/24 Ondansetron Odt [Zofran Odt] 4 mg PO Q8HR PRN #10 tab 11/28/24 Allergies Allergy/AdvReac Type Severity Reaction Status Date / Time corn Allergy Rash/Hives Verified 11/28/24 14:30 egg Allergy Rash/Hives Verified 11/28/24 14:30 Milk Containing Products Allergy Rash/Hives Verified 11/28/24 14:30 (Dairy) [Dairy] soy Allergy Rash/Hives Verified 11/28/24 14:30 tomato Allergy Rash/Hives Verified 11/28/24 14:30 wheat Allergy Rash/Hives Verified 11/28/24 14:30 Review of Systems ROS Statement: Those systems with pertinent positive or pertinent negative responses have been documented in the HPI. ROS Other: All systems not noted in ROS Statement are negative. Past Medical History Past Medical History: No Reported History Additional Past Medical History / Comment(s): Polycystic ovarian disease, ovarian cysts, FIBORID CYST. colitis History of Any Multi-Drug Resistant Organisms: None Reported Past Surgical History: Uterine Ablation Additional Past Surgical History / Comment(s): D &C, sinus surgery Past Anesthesia/Blood Transfusion Reactions: No Reported Reaction Past Psychological History: No Psychological Hx Reported Smoking Status: Never smoker - Past Family History Brother(s) Family Medical History: Cancer Father Family Medical History: Cancer General Exam Limitations: no limitations General appearance: alert, in no apparent distress Head exam: Present: atraumatic, normocephalic, normal inspection Eye exam: Present: normal appearance, PERRL, EOMI. Absent: scleral icterus, conjunctival injection, periorbital swelling Respiratory exam: Present: normal lung sounds bilaterally. Absent: respiratory distress, wheezes, rales, rhonchi, stridor Cardiovascular Exam: Present: regular rate, normal rhythm, normal heart sounds. Absent: systolic murmur, diastolic murmur, rubs, gallop, clicks GI/Abdominal exam: Present: soft, tenderness (Left lower quadrant abdominal pain), normal bowel sounds. Absent: distended, guarding, rebound, rigid Back exam: Absent: CVA tenderness (R), CVA tenderness (L) Neurological exam: Present: alert, oriented X3 Course Vital Signs 11/28/24 11/28/24 11/28/24 11:19 12:15 13:17 Temperature 97.7 F Pulse Rate 76 86 86 Respiratory 22 22 Rate Blood Pressure 148/88 136/80 O2 Sat by Pulse 100 100 95 Oximetry 11/28/24 14:32 Temperature Pulse Rate 102 H Respiratory 18 Rate Blood Pressure 106/77 O2 Sat by Pulse 97 Oximetry Medical Decision Making - Medical Decision Making Was pt. sent in by a medical professional or institution (, PA, CUSTOMER TRAINER, urgent care, hospital, or half-way...) When possible be specific @ -No Did you speak to anyone other than the patient for history (EMS, parent, family, police, friend...)? What history was obtained from this source @ -No Did you review nursing and triage notes (agree or disagree)? Why? @ -I reviewed and agree with nursing and triage notes Were old charts reviewed (outside hosp., previous admission, EMS record, old EKG, old radiological studies, urgent care reports/EKG's, half-way records)? Report findings @ -No old charts were reviewed Differential Diagnosis (chest pain, altered mental status, abdominal pain women, abdominal pain men, vaginal bleeding, weakness, fever, dyspnea, syncope, headache, dizziness, GI bleed, back pain, seizure, CVA, palpatations, mental health, musculoskeletal)? @ -Differential Abdominal Pain Women: Appendicitis, Cholecystitis, diverticulosis, ischemic bowel, pancreatitis, hepatitis, UTI, gastroenteritis, AAA, incarcerated hernia, bowel obstruction, constipation, inflammatory bowel, hepatitis, peptic ulcer disease, splenic infarction, perforated viscus, vulvitis, ovarian torsion, PID, kidney stone, placenta abruption, this is not meant to be an all-inclusive list EKG interpreted by me (3pts min.). @ -As above X-rays interpreted by me (1pt min.). @ -None done CT interpreted by me (1pt min.). @ -CT abdomen pelvis shows ill-defined area within uterus recommending pelvic ultrasound, otherwise no acute process. U/S interpreted by me (1pt. min.). @ -None done What testing was considered but not performed or refused? (CT, X-rays, U/S, labs)? Why? @ -Consider ultrasound patient declined stating that she has had multiple ultrasound and recent ultrasound showing no acute process. What meds were considered but not given or refused? Why? @ -None Did you discuss the management of the patient with other professionals (professionals i.e. , PA, CUSTOMER TRAINER, lab, RT, psych nurse, social insurance adviser, harnessmaker, teacher, training systems officer, case finishing machine adjuster)? Give summary @ -No Was smoking cessation discussed for >3mins.? @ -No Was critical care preformed (if so, how long)? @ -No Were there social determinants of health that impacted care today? How? (Homelessness, low income, unemployed, alcoholism, drug addiction, transpo rtation, low edu. Level, literacy, decrease access to med. care, half-way, rehab)? @ -No Was there de-escalation of care discussed even if they declined (Discuss DNR or withdrawal of care, Hospice)? DNR status @ -No What co-morbidities impacted this encounter? (DM, HTN, Smoking, COPD, CAD, Cancer, CVA, ARF, Chemo, Hep., AIDS, mental health diagnosis, sleep apnea, morbid obesity)? @ -None Was patient admitted / discharged? Hospital course, mention meds given and route, prescriptions, significant lab abnormalities, going to OR and other pertinent info. @ -Discharge patient's had recurrent issues of this related to colitis. Patient states pain feels similar no exact findings on CAT scan other than recommendation of ultrasound patient declined patient was started on antibiotics as this improves her symptoms in the past. Patient will follow-up with GI return parameters eyal. Undiagnosed new problem with uncertain prognosis? @ -No Drug Therapy requiring intensive monitoring for toxicity (Heparin, Nitro, Insulin, Cardizem)? @ -No Were any procedures done? @ -No Diagnosis/symptom? @ -Abdominal pain, colitis Acute, or Chronic, or Acute on Chronic? @ -@Acute Uncomplicated (without systemic symptoms) or Complicated (systemic symptoms)? @ -Complicated Side effects of treatment? @ -No Exacerbation, Progression, or Severe Exacerbation? @ -No Poses a threat to life or bodily function? How? (Chest pain, USA, CA, pneumonia, PE, COPD, DKA, ARF, appy, cholecystitis, CVA, Diverticulitis, Homicidal, Suicidal, threat to staff... and all critical care pts) @ -No - Lab Data Result diagrams: 11/28/24 12:14 11/28/24 12:14 Lab Results 11/28/24 11/28/24 11/28/24 Range/Units 12:14 12:14 12:14 WBC 9.31 (4.50-10.00) 10*3/uL RBC 4.48 (4.10-5.20) 10*6/uL Hgb 14.4 (12.0-15.0) g/dL Hct 41.6 (37.2-46.3) % MCV 92.9 (80.0-97.0) fL MCH 32.1 H (27.0-32.0) pg MCHC 34.6 (32.0-37.0) g/dL Plt Count 262 (140-440) 10*3/uL MPV 10.5 (9.5-12.2) fL Immature Gran % (Auto) 0.2 % Neutrophils % 70.1 % Lymphocytes % 21.8 % Monocytes % 6.1 % Eosinophils % 1.6 % Basophils % 0.2 % Immature Gran # 0.02 (0.00-0.04) 10*3/uL Neutrophils # 6.52 (1.80-7.70) 10*3/uL Lymphocytes # 2.03 (0.90-5.00) 10*3/uL Monocytes # 0.57 (0.20-1.00) 10*3/uL Eosinophils # 0.15 (0.04-0.35) 10*3/uL Basophils # 0.02 (0.00-0.10) 10*3/uL Sodium 137 (137-145) mmol/L Potassium 4.3 (3.5-5.1) mmol/L Chloride 104 (98-107) mmol/L Carbon Dioxide 22 (22-30) mmol/L Anion Gap 11 mmol/L BUN 18 H (7-17) mg/dL Creatinine 0.61 (0.52-1.04) mg/dL Est GFR (CKD-EPI)AfAm >90 (>60 ml/min/1.73 sqM) Est GFR (CKD-EPI)NonAf >90 (>60 ml/min/1.73 sqM) Glucose 103 H (74-99) mg/dL Plasma Lactic Acid Dustin 2.2 H* (0.7-2.0) mmol/L Calcium 9.5 (8.4-10.2) mg/dL Total Bilirubin 0.9 (0.2-1.3) mg/dL AST 29 (14-36) U/L ALT 20 (4-34) U/L Alkaline Phosphatase 69 (38-126) U/L Total Protein 8.0 (6.3-8.2) g/dL Albumin 4.2 (3.5-5.0) g/dL Lipase 66 (23-300) U/L Urine Color Urine Appearance (Clear) Urine pH (5.0-8.0) Ur Specific Ingalls (1.001-1.035) Urine Protein (Negative) Urine Glucose (UA) (Negative) Urine Ketones (Negative) Urine Blood (Negative) Urine Nitrite (Negative) Urine Bilirubin (Negative) Urine Urobilinogen (<2.0) mg/dL Ur Leukocyte Esterase (Negative) 11/28/24 Range/Units 14:08 WBC (4.50-10.00) 10*3/uL RBC (4.10-5.20) 10*6/uL Hgb (12.0-15.0) g/dL Hct (37.2-46.3) % MCV (80.0-97.0) fL MCH (27.0-32.0) pg MCHC (32.0-37.0) g/dL Plt Count (140-440) 10*3/uL MPV (9.5-12.2) fL Immature Gran % (Auto) % Neutrophils % % Lymphocytes % % Monocytes % % Eosinophils % % Basophils % % Immature Gran # (0.00-0.04) 10*3/uL Neutrophils # (1.80-7.70) 10*3/uL Lymphocytes # (0.90-5.00) 10*3/uL Monocytes # (0.20-1.00) 10*3/uL Eosinophils # (0.04-0.35) 10*3/uL Basophils # (0.00-0.10) 10*3/uL Sodium (137-145) mmol/L Potassium (3.5-5.1) mmol/L Chloride (98-107) mmol/L Carbon Dioxide (22-30) mmol/L Anion Gap mmol/L BUN (7-17) mg/dL Creatinine (0.52-1.04) mg/dL Est GFR (CKD-EPI)AfAm (>60 ml/min/1.73 sqM) Est GFR (CKD-EPI)NonAf (>60 ml/min/1.73 sqM) Glucose (74-99) mg/dL Plasma Lactic Acid Dustin (0.7-2.0) mmol/L Calcium (8.4-10.2) mg/dL Total Bilirubin (0.2-1.3) mg/dL AST (14-36) U/L ALT (4-34) U/L Alkaline Phosphatase (38-126) U/L Total Protein (6.3-8.2) g/dL Albumin (3.5-5.0) g/dL Lipase (23-300) U/L Urine Color Colorless Urine Appearance Clear (Clear) Urine pH 6.5 (5.0-8.0) Ur Specific [place] >1.050 H (1.001-1.035) Urine Protein Negative (Negative) Urine Glucose (UA) Negative (Negative) Urine Ketones 1+ H (Negative) Urine Blood Negative (Negative) Urine Nitrite Negative (Negative) Urine Bilirubin Negative (Negative) Urine Urobilinogen <2.0 (<2.0) mg/dL Ur Leukocyte Esterase Negative (Negative) Disposition Clinical Impression: Colitis Disposition: HOME SELF-CARE Condition: Stable Instructions (If sedation given, give patient instructions): Abdominal Pain (ED) Additional Instructions: Please return to the Emergency Department if symptoms worsen or any other concerns. Prescriptions: Amoxic-Pot Clav 875-125Mg [Augmentin 875-125] 1 tab PO Q12HR #20 tab Fluconazole [Diflucan] 150 mg PO ONCE #4 tab Ondansetron Odt [Zofran Odt] 4 mg PO Q8HR PRN #10 tab PRN Reason: Nausea Is patient prescribed a controlled substance at d/c from ED?: No Referrals: Tez Hewitt MD [Primary Care Provider] - 1-2 days Time of Disposition: 15:26
[2024-11-28 12:44] LABS: ALT 20 U/L (4-34); African American GFR (CKD) >90 (>60 ml/min/1.73 sqM); Albumin 4.2 g/dL (3.5-5.0); Anion Gap 11 mmol/L; Blood Urea Nitrogen 18 mg/dL (7-17); Calcium 9.5 mg/dL (8.4-10.2); Carbon Dioxide 22 mmol/L (22-30); Chloride 104 mmol/L (98-107); Glucose 103 mg/dL (74-99); Lipase 66 U/L (23-300); Non-African American GFR(CKD) >90 (>60 ml/min/1.73 sqM); Sodium 137 mmol/L (137-145); Total Bilirubin 0.9 mg/dL (0.2-1.3)
--- NOTE | 2024-11-28 13:14 | CT ---
EXAMINATION TYPE: CT abdomen pelvis w con DATE OF EXAM: 11/28/2024 COMPARISON: 08/06/2021 CLINICAL INDICATION: Female, 44 years old with history of abdominal pain; PHH, Abdominal pain, nausea . TECHNIQUE: Performed without Oral Contrast and with IV Contrast, patient injected with 100 ml mL of Isovue 300. CT DLP: 1365.[address] CTDI: mGy Automated exposure control for dose reduction was used. FINDINGS: The lung bases are clear. The gallbladder is normal without distention, wall thickening, pericholecystic fluid or gallstones. T here is no biliary ductal dilatation. There is no focal mass or organomegaly involving the liver, pancreas, spleen or adrenal glands. There is no solid renal mass or hydronephrosis and there is homogeneous contrast enhancement of the r enal parenchyma. The caliber the abdominal aorta is normal is no retroperitoneal adenopathy or hemorr brayan. The bowel loops are normal in caliber and there is no evidence of dilatation or obstruction. No infla mmatory changes are identified in the bowel wall or mesentery. There is no free intraperitoneal air or fluid. There is ill-defined hypodensity within the uterus. Pelvic ultrasound is recommended for further eval uation. There is advanced degenerative disease at the L1-2 level and L5-S1 level. There is a slight anterolat eral listhesis of L5 on S1. There are no focal destructive lesions IMPRESSION: Ill-defined hypodensity within the uterus and pelvic ultrasound is recommended for further evaluation . [facility], , 11/28/2024 1:11 PM
[2024-11-28 13:24] LABS: AST 29 U/L (14-36); Alkaline Phosphatase 69 U/L (38-126); Potassium 4.3 mmol/L (3.5-5.1)
[2024-11-28] MEDS: KETOROLAC 15 MG/ML 1 ML VIAL IVP STA (14:26)
[2024-11-28] MEDS: diphenhydrAMINE 50 MG/ML 1 ML VIAL IVP STA (14:26)
[2024-11-28] MEDS: METOCLOPRAMIDE 5 MG/ML 2 ML VIAL IVP STA (14:27)
[2024-11-28 14:32] VITALS: RESP 18
[2024-11-28 15:07] LABS: Appearance,Urine Clear (Clear); Bilirubin,Urine Negative (Negative); Blood,Urine Negative (Negative); Color,Urine Colorless; Glucose,Urine (UA) Negative (Negative); Ketones,Urine 1+ (Negative); Leukocyte Esterase,Urine Negative (Negative); Nitrite,Urine Negative (Negative); PH, Urine 6.5 (5.0-8.0); Protein,Urine Negative (Negative); Urobilinogen,Urine <2.0 mg/dL (<2.0)
[2024-11-28 15:23] LABS: Specific Gravity,Urine >1.050 (1.001-1.035)
[2024-11-28] MEDS: ACET/COD 300 MG/30 MG STARTER PACK 6 TAB BTL PO STA (15:39)
[2024-11-28 15:41] VITALS: BP 113/63; PULSE 81
== END 2024-11-28 15:41 | disposition home or self-care (01) ==
LOC: EC 11:16
DX: K52.9 Noninfective gastroenteritis and colitis, unspecified (principal); Z91.011 Allergy to milk products; Z91.012 Allergy to eggs; Z91.013 Allergy to seafood; Z91.018 Allergy to other foods
CPT/HCPCS: 36415; 80053; 83605; 83690; 85025; 81003; 74177; 99284; 96374; 96375; 96376; 96361; J1200; J2765; J2405; J1885; J1171; Q9967